=== PATIENT | male | born 1975 | race American Indian/Alaskan Native ===

== ENCOUNTER 2019-03-15 03:49 | Emergency (ER) | payer OTHER ==
--- NOTE | 2019-03-15 04:47 | ER ---
Nurse's Notes [facility] Name: Reji Childress Age: 43 yrs Sex: Male : 1975 Arrival Date: 03/15/2019 Time: 03:52 Bed 19 Private MD: Diagnosis: Hemorrhoids and perianal venous thrombosis Presentation: 03/15 04:04 Presenting complaint: Patient states: 2 days ago I notice a blood (bright red) coming rr5 from my rectum and lump. it comes and goes tonight it came back its bleeding again and itchy. pain score 3/10. Transition of care: patient was not received from another setting of care. Onset of symptoms was March 13, 2019. Risk Assessment: Do you want to hurt yourself or someone else? Patient reports no desire to harm self or others. Initial Sepsis Screen: Does the patient meet any 2 criteria? No. Patient's initial sepsis screen is negative. Does the patient have a suspected source of infection? No. Patient's initial sepsis screen is negative. Care prior to arrival: None. 04:04 Method Of Arrival: Ambulatory rr5 04:04 Acuity: BHARAT 3 rr5 Historical: - Allergies: 04:08 No Known Allergies; rr5 - Home Meds: 04:08 Exforge 5-160 mg oral tab [Active]; lansoprazole oral oral [Active]; rr5 - PMHx: 04:08 Hypertension; hyperacidity; rr5 - PSHx: 04:08 lasik; rr5 - Immunization history:: Adult Immunizations up to date. - Social history:: Smoking status: Patient uses tobacco products, smokes one pack cigarettes per day. Patient uses alcohol, occasionally. Patient/guardian denies using street drugs. - Ebola Screening: : Patient negative for fever greater than or equal to 101.5 degrees Fahrenheit, and additional compatible Ebola Virus Disease symptoms Patient denies exposure to infectious person Patient denies travel to an Ebola-affected area in the 21 days before illness onset. Screenin:09 Abuse screen: Denies threats or abuse. Denies injuries from another. Nutritional rr5 screening: No deficits noted. Tuberculosis screening: No symptoms or risk factors identified. Fall Risk None identified. Total Hodge Fall Scale indicates No Risk (0-24 pts). Assessment: 04:05 General: Appears in no apparent distress. comfortable, Behavior is calm, cooperative, rr5 appropriate for age. 04:05 Pain: Complains of pain in anus Pain does not radiate. Pain currently is 3 out of 10 on rr5 a pain scale. Quality of pain is described as aching, Pain began gradually, Is intermittent. Neuro: Level of Consciousness is awake, alert, obeys commands, Oriented to person, place, time, situation, Appropriate for age. Cardiovascular: Capillary refill < 3 seconds Patient's skin is warm and dry. Respiratory: Airway is patent Respiratory effort is even, unlabored, Respiratory pattern is regular, symmetrical. GI: lump on the 4 o clock of the anus. mild bleeding noted. : No signs and/or symptoms were reported regarding the genitourinary system. EENT: No signs and/or symptoms were reported regarding the EENT system. Derm: Skin Skin temperature is warm. Musculoskeletal: Circulation, motion, and sensation intact. Capillary refill < 3 seconds. 04:59 Reassessment: Patient appears in no apparent distress at this time. Patient is alert, rr5 oriented x 3, equal unlabored respirations, skin warm/dry/pink. discharge instruction given and explained without complaints made. verbalized undertsanding. Vital Signs: 04:04 BP 148 / 99; Pulse 89; Resp 18; Temp 98.6; Pulse Ox 99% ; Weight 87 kg; Height 5 ft. 11 rr5 in. (180.34 cm); Pain 3/10; 04:59 BP 135 / 85; Pulse 85; Resp 17; Pulse Ox 99% ; rr5 04:04 Body Mass Index 26.75 (87.00 kg, 180.34 cm) rr5 ED Course: 03:52 Patient arrived in ED. ds1 04:04 Levar Meredith, IRENE is Primary Nurse. rr5 04:07 Triage completed. rr5 04:09 Arm band placed on right wrist. rr5 04:09 Patient has correct armband on for positive identification. Placed in gown. Bed in low rr5 position. Call light in reach. Side rails up X2. 04:28 Neil Barnes MD is Attending Physician. gs 04:46 Yo Coelho MD is Referral Physician. gs 04:59 No provider procedures requiring assistance completed. Patient did not have IV access rr5 during this emergency room visit. Administered Medications: No medications were administered Outcome: 04:46 Discharge ordered by . ger 04:59 Discharged to home ambulatory. rr5 04:59 Condition: stable 04:59 Discharge instructions given to patient, Instructed on discharge instructions, follow up and referral plans. medication usage, Demonstrated understanding of instructions, follow-up care, medications, Prescriptions given X 2. 05:01 Patient left the ED. rr5 Signatures: Zita Mishra ds1 Neil Barnes MD MD Levar Meredith RN RN rr5
--- NOTE | 2019-03-15 04:47 | EDPHYS ---
Physician Documentation [facility] Name: Reji Childress Age: 43 yrs Sex: Male : 1975 Arrival Date: 03/15/2019 Time: 03:52 Bed 19 Private MD: ED Physician Neil Barnes HPI: 03/15 04:32 This 43 yrs old Other Male presents to ER via Ambulatory with complaints of Rectal gs Bleeding. 04:32 The patient presents to the emergency department with bleeding from the rectum/anus, gs that is mild. Onset: The symptoms/episode began/occurred today. Context: the patient has a known history of hemorrhoids. Modifying factors: The symptoms are alleviated by cool compress, The symptoms are aggravated by bowel movement. Associate signs and symptoms: Pertinent negatives: abdominal pain. The patient has experienced a previous episode. Historical: - Allergies: 04:08 No Known Allergies; rr5 - Home Meds: 04:08 Exforge 5-160 mg oral tab [Active]; lansoprazole oral oral [Active]; rr5 - PMHx: 04:08 Hypertension; hyperacidity; rr5 - PSHx: 04:08 lasik; rr5 - Immunization history:: Adult Immunizations up to date. - Social history:: Smoking status: Patient uses tobacco products, smokes one pack cigarettes per day. Patient uses alcohol, occasionally. Patient/guardian denies using street drugs. - Ebola Screening: : Patient negative for fever greater than or equal to 101.5 degrees Fahrenheit, and additional compatible Ebola Virus Disease symptoms Patient denies exposure to infectious person Patient denies travel to an Ebola-affected area in the 21 days before illness onset. ROS: 04:32 All other systems are negative. gs Exam: 04:32 Head/Face: Normocephalic, atraumatic. Eyes: Pupils equal round and reactive to light, gs extra-ocular motions intact. Lids and lashes normal. Conjunctiva and sclera are non-icteric and not injected. Cornea within normal limits. Periorbital areas with no swelling, redness, or edema. ENT: Nares patent. No nasal discharge, no septal abnormalities noted. Tympanic membranes are normal and external auditory canals are clear. Oropharynx with no redness, swelling, or masses, exudates, or evidence of obstruction, uvula midline. Mucous membranes moist. Neck: Trachea midline, no thyromegaly or masses palpated, and no cervical lymphadenopathy. Supple, full range of motion without nuchal rigidity, or vertebral point tenderness. No Meningismus. Chest/axilla: Normal chest wall appearance and motion. Nontender with no deformity. No lesions are appreciated. Cardiovascular: Regular rate and rhythm with a normal S1 and S2. No gallops, murmurs, or rubs. Normal PMI, no JVD. No pulse deficits. Respiratory: Lungs have equal breath sounds bilaterally, clear to auscultation and percussion. No rales, rhonchi or wheezes noted. No increased work of breathing, no retractions or nasal flaring. Back: No spinal tenderness. No costovertebral tenderness. Full range of motion. 04:32 Constitutional: The patient appears alert, awake. 04:32 Abdomen/GI: Palpation: abdomen is soft and non-tender, in all quadrants, Rectal exam: hemorrhoid(s), external, with associated bleeding, with thrombosis. Vital Signs: 04:04 BP 148 / 99; Pulse 89; Resp 18; Temp 98.6; Pulse Ox 99% ; Weight 87 kg; Height 5 ft. 11 rr5 in. (180.34 cm); Pain 3/10; 04:59 BP 135 / 85; Pulse 85; Resp 17; Pulse Ox 99% ; rr5 04:04 Body Mass Index 26.75 (87.00 kg, 180.34 cm) rr5 MDM: 04:32 Patient medically screened. 04:32 Data reviewed: vital signs, nurses notes. Counseling: I had a detailed discussion with the patient and/or guardian regarding: the historical points, exam findings, and any diagnostic results supporting the discharge/admit diagnosis, the need for outpatient follow up, a general surgeon. Administered Medications: No medications were administered Disposition: 03/15/19 04:46 Discharged to Home. Impression: Hemorrhoids and perianal venous thrombosis. - Condition is Stable. - Discharge Instructions: Hemorrhoids, [id number]. - Prescriptions for Colace 100 mg Oral Tablet - take 1 tablet by ORAL route every 12 hours; 14 tablet. hydrocortisone- pramoxine 2.5-1 % Rectal cream - insert 1 applicatorful by RECTAL route 2 times per day As needed; 14 suppository. - Medication Reconciliation Form, Thank You Letter, Antibiotic Education, Prescription Opioid Use form. - Follow up: Yo Coelho MD; When: 2 - 3 days; Reason: Re-evaluation by your physician. Signatures: Neil Barnes MD MD Levar Meredith RN RN rr5 Corrections: (The following items were deleted from the chart) 05:01 04:46 03/15/2019 04:46 Discharged to Home. Impression: Hemorrhoids and perianal venous rr5 thrombosis. Condition is Stable. Forms are Medication Reconciliation Form, Thank You Letter, Antibiotic Education, Prescription Opioid Use. Follow up: Yo Coelho; When: 2 - 3 days; Reason: Re-evaluation by your physician. gs
[2019-03-15 14:40] VITALS: TEMP 98.6; O2SAT 99
[2019-03-15 14:41] VITALS: BP 135/85
== END 2019-03-15 05:01 | disposition home or self-care (01) ==
LOC: ER 03:49
DX: K64.5 Perianal venous thrombosis (principal); I10 Essential (primary) hypertension; F17.210 Nicotine dependence, cigarettes, uncomplicated
CPT/HCPCS: 99282